=== PATIENT | female | born 1970 | race Caucasian/White ===

== ENCOUNTER 2016-06-12 13:01 | Outpatient (CLI) | payer OTHER ==
[2013-01-01 13:40] VITALS: BP 156/72
== END 2016-06-12 13:15 ==
LOC: OUT 13:01
PROVIDERS: ATTEND Colon & Rectal Surgery
DX: M79.89 Other specified soft tissue disorders (principal)
CPT/HCPCS: 99213

== ENCOUNTER 2016-07-01 07:09 | Emergency (ER) | payer OTHER ==
--- NOTE | 2016-07-01 08:02 | ED Physician Documentation ---
Lower Extremity Problem - HISTORIAN Historian: patient - HPI Stated Complaint: LEFT HIP PAIN Chief Complaint: Hip Pain Location of Injury: L hip Onset: days ago (2 days ago) Timing: still present Duration: constant Recent Injury: No Severity: moderate Exacerbated By: other (sitting or laying down makes it worse) Relieved By: other (helped with standing, walking) Further Comments: yes (Gradual onset that has been getting worse. Has not had any similar pain in the past. No precipititating factor noted. Pain is in the sciatica area. No radiation in to the leg. Has had partial knee replacement in APR. Had some hip problems then and with PT it got better but did not feel like this. Has tried warm/ice compress, Ibuprofen 800mg had not helped. Muscle relaxant has not helped.) - ROS CONST: denies: fever MS/SKIN/LYMPH: none - PAST HX Past History: none Surgeries/Procedures: other (scope on her wrist, partial left knee replacement) Allergies/Adverse Reactions: Allergies Allergy/AdvReac Type Severity Reaction Status Date / Time No Known Allergies Allergy Verified 07/01/16 07:38 Home Medications: Ambulatory Orders Medication Instructions Recorded Cyclobenzaprine HCl 5 mg PO Q6 PRN #30 tablet 07/01/16 Hydrocodone/Acetaminophen 1 - 2 each PO Q6 PRN #30 tablet 07/01/16 [Hydrocodon-Acetaminophen 5-325] - SOCIAL HX Smoking History: non-smoker Alcohol Use: none Drug Use: none - FAMILY HX Family History: none - VITAL SIGNS Vital Signs: Vital Signs Temp Pulse Resp BP Pulse Ox 97.7 F 82 16 159/92 97 07/01/16 09:15 07/01/16 09:15 07/01/16 09:15 07/01/16 09:15 07/01/16 09:15 ED Results Lab/Radiology - Orders Orders: ED Orders Category Date Time Status Cyclobenzaprine HCl [Flexeril] Med 07/01/16 08:09 Discontinued 10 mg PO NOW ONE Ketorolac Tromethamine [Toradol] Med 07/01/16 08:08 Discontinued 60 mg IM NOW ONE Lower Extremity Problem - EXAM General Appearance: moderate distress Hips: right hip: non-tender, normal inspection, left hip: soft tissue tenderness (over the piriformis muscle), bilateral hip: normal range of motion, no evidence of injury, N/A: swelling (none) Legs: bilateral: non-tender, normal inspection, normal range of motion, no evidence of injury Neuro/Tendon: normal sensation, normal motor functions, normal tendon functions RESPIRATORY: no resp distress, chest non-tender, breath sounds normal. No: wheezes, rales, rhonchi CVS: reg rate & rhythm, heart sounds normal, equal pulses, no murmur, no gallop NEURO/PSYCH: oriented X3, mood/affect nml, cognition normal SKIN: warm/dry, normal color Discharge Clincal Impression: Piriformis syndrome Prescriptions: Cyclobenzaprine HCl 5 mg PO Q6 PRN #30 tablet PRN Reason: muscle spasms Hydrocodone/Acetaminophen [Hydrocodon-Acetaminophen 5-325] 1 - 2 each PO Q6 PRN #30 tablet PRN Reason: Pain Referrals: Antonella Quevedo MD [Primary Care Provider] - 2 Days Additional Instructions: Continue with warm compress to the buttocks area. Take pain medication as directed, it may cause drowsiness. Take muscle relaxant as needed. Home Medications: Ambulatory Orders Cyclobenzaprine HCl 5 mg PO Q6 PRN #30 tablet 07/01/16 Hydrocodone/Acetaminophen [Hydrocodon-Acetaminophen 5-325] 1 - 2 each PO Q6 PRN #30 tablet 07/01/16 Condition: Stable Disposition: 01 HOME, SELF-CARE Decision to Admit: NO Date of Decison to Admit: 07/01/16 Decision Time: 08:54
[2016-07-01] MEDS ORDERED: KETOROLAC TROMETHAMINE 60 MG/2 ML VIAL IM ONE (08:08)
[2016-07-01] MEDS ORDERED: CYCLOBENZAPRINE HCL 5 MG TABLET PO ONE (08:09)
[2016-07-01 09:18] VITALS: BP 159/92
== END 2016-07-01 09:10 | disposition home or self-care (01) ==
LOC: ED 07:09
DX: M25.552 Pain in left hip (principal)
CPT/HCPCS: 96372; 99283; J1885

== ENCOUNTER 2017-06-09 15:48 | Outpatient (CLI) | payer OTHER ==
[2017-06-09 16:07] LABS: MEAN CORPUSCULAR HEMOGLOBIN 29.1 pg (28.0-34.0); MEAN CORPUSCULAR VOLUME 88.1 fl (80.0-100.0)
[2017-06-09 16:38] LABS: eGFR (African) > 60; eGFR (Non-African) > 60
== END 2017-06-09 15:49 ==
LOC: LAB 15:48
PROVIDERS: ATTEND Family Medicine
DX: M79.604 Pain in right leg (principal); M79.605 Pain in left leg; L65.9 Nonscarring hair loss, unspecified; R53.83 Other fatigue
CPT/HCPCS: 36415; 80053; 84443; 85027; 86431

== ENCOUNTER 2019-03-14 09:22 | Outpatient (CLI) | payer OTHER ==
--- NOTE | 2019-03-14 15:46 | Diagnostic Imaging Report ---
PATIENT MR#: [id number] PATIENT PATIENT NAME: MADELIN LOPEZ DATE OF : 1970 REFERRING PHYSICIAN: SOCO MAYO EXAM DATE: 03/14/2019 ACCESSION NUMBER: [id number] EXAM DESCRIPTION: FOOT 3 VIEWS OR MORE Indication: Left foot pain with no known injury. Technique: Four views of the left foot were obtained. Comparison: None available. Findings: There is no fracture, dislocation, or suspicious osseous lesions of the left foot. There is flattening of the normal plantar arch. There is a small plantar surface calcaneal spur. There is minimal joint space na rrowing in the midfoot with no osseous erosive changes. There are no radiopaque foreign bodies with no significant s oft tissue swelling. Impression: 1.No fracture or dislocation of the left foot. 2.Mild pes planus deformity with minimal joint space narrowing in the midfoot. 3.Small plantar surface calcaneal spur. Read by: Dr. Rolando Quintana Transcribed by: Rolando Quintana Transcribed Date: 03/14/2019 3:45:41 PM Electronically signed by: Dr. Rolando Quintana Date signed: 03/14/2019 3:45:41 PM
--- NOTE | 2019-03-14 15:55 | Diagnostic Imaging Report ---
PATIENT MR#: [id number] PATIENT PATIENT NAME: MADELIN LOPEZ DATE OF : 1970 REFERRING PHYSICIAN: SOCO MAYO EXAM DATE: 03/14/2019 ACCESSION NUMBER: [id number] EXAM DESCRIPTION: ANKLE 3 VIEWS OR MORE Indication: Left ankle pain with no known injury. Technique: Three views of the left ankle were obtained. Comparison: None available. Findings: There is no fracture, dislocation, or suspicious osseous lesions of the left ankle. The ank le mortise is congruent. There is no joint space narrowing. There is a small plantar surface calcaneal spur. There are no radiopaque foreign bodies or soft tissue swelling. Impression: 1.No fracture or acute abnormality of the left ankle. 2.Small plantar surface calcaneal spur. Read by: Dr. Rolando Quintana Transcribed by: Rolando Quintana Transcribed Date: 03/14/2019 3:55:29 PM Electronically signed by: Dr. Rolando Quintana Date signed: 03/14/2019 3:55:29 PM
== END 2019-03-14 09:32 ==
LOC: RAD 09:22
PROVIDERS: ATTEND Podiatrist Foot & Ankle Surgery
DX: M25.572 Pain in left ankle and joints of left foot (principal)
CPT/HCPCS: 73610; 73630